=== PATIENT | male | born 1985 | race Caucasian/White ===

== ENCOUNTER 2018-12-10 16:15 | Observation (INO) | payer OTHER ==
[2018-12-10] MEDS: IOHEXOL 300MG/ML 150 ML BTL (16:49)
[2018-12-10] MEDS: SOD CHLORIDE 0.9% 100 ML (16:49)
[2018-12-10] MEDS: HYDROmorphONE 1 MG/ML SYG IV ×2 (17:05→23:07)
[2018-12-10 17:33] LABS: ADD MAN DIFF? NO
[2018-12-10 17:34] LABS: BASOPHILS % 0.4 % (0.0-2.0); HEMATOCRIT 40.4 % (42.0-52.0); HEMOGLOBIN 13.9 g/dl (14.0-18.0); LYMPHOCYTES # 1.1 10^3/ul (0.8-2.9); LYMPHOCYTES % 12.7 % (15.0-51.0); MEAN CORPUSCULAR HEMOGLOBIN 28.8 pg (29.0-33.0); MEAN CORPUSCULAR HGB CONC 34.4 g/dl (32.0-37.0); MEAN CORPUSCULAR VOLUME 83.8 fl (82.0-101.0); MEAN PLATELET VOLUME 9.2 fl (7.4-10.4); MONOCYTE # 0.4 10^3/ul (0.3-0.9); NEUTROPHIL # 7.3 10^3/ul (1.6-7.5); PLATELET COUNT 329 10^3/UL (140-415); RED BLOOD COUNT 4.82 10^6/ul (4.70-6.10); RED CELL DISTRIBUTION WIDTH 11.9 % (11.5-14.5)
[2018-12-10 17:50] LABS: ALANINE AMINOTRANSFERASE 41 IU/L (13-69); ALBUMIN 4.8 g/dl (3.3-4.9); ALKALINE PHOSPHATASE 52 IU/L (42-121); ANION GAP 13 (5-13); ASPARTATE AMINO TRANSFERASE 28 IU/L (15-46); BILIRUBIN,INDIRECT 2.2 mg/dl (0-1.1); BILIRUBIN,TOTAL 2.2 mg/dl (0.2-1.3); BLOOD UREA NITROGEN 15 mg/dl (7-20); CALCIUM 10.2 mg/dl (8.4-10.2); CARBON DIOXIDE 24 mmol/L (21-31); CHLORIDE 102 mmol/L (97-110); CREATININE 1.06 mg/dl (0.61-1.24); Estimated GFR > 60 mL/min (>60); GLUCOSE 125 mg/dl (70-220); LIPASE 73 U/L (23-300); POTASSIUM 3.8 mmol/L (3.5-5.1); SODIUM 139 mmol/L (135-144)
[2018-12-10] MEDS: FENTAnyl 50 MCG/ML VIAL IV ×2 (18:18→18:50)
[2018-12-10] MEDS: HYDROmorphONE 2 MG/ML SYG IV (18:51)
[2018-12-10] MEDS: KETAMINE HCL (50 MG/ML) 1ml syringe IV (19:50)
[2018-12-10] MEDS: ONDANSETRON 4 MG INJ IV (19:50)
[2018-12-10 19:54] LABS: ADD UMIC NO; UR ASCORBIC ACID 40 mg/dL (NEGATIVE); UR BILIRUBIN (Dip) NEGATIVE (NEGATIVE); UR BLOOD (Dip) NEGATIVE (NEGATIVE); UR CLARITY CLEAR (CLEAR); UR COLOR YELLOW (YELLOW); UR GLUCOSE (Dip) NEGATIVE (NEGATIVE); UR KETONES (Dip) NEGATIVE (NEGATIVE); UR LEUKOCYTE ESTERASE (Dip) NEGATIVE Leu/ul (NEGATIVE); UR NITRITE (Dip) NEGATIVE (NEGATIVE); UR SPECIFIC GRAVITY (Dip) 1.053 (1.003-1.030); UR TOTAL PROTEIN (Dip) NEGATIVE (NEGATIVE); UR UROBILINOGEN (Dip) NEGATIVE (NEGATIVE)
[2018-12-10] MEDS ORDERED: ONDANSETRON 4 MG INJ IV ×2 (20:00→22:30)
[2018-12-10] MEDS ORDERED: ACETAMINOPHEN 325 MG TAB PO ×2 (20:00→22:30)
[2018-12-10] MEDS: morphine 4 MG/ML VIAL IV (22:19)
[2018-12-10] MEDS: SOD CHLORIDE 0.9% 1,000 ML IV (22:31)
[2018-12-10] MEDS: ZOLPIDEM 5 MG TAB PO (23:07)
[2018-12-10] MEDS: RANITIDINE 150 MG TAB PO (23:07)
[2018-12-11] MEDS: KETOROLAC 30 MG INJ IV (00:29)
[2018-12-11] MEDS: ZOLPIDEM 5 MG TAB PO (00:29)
[2018-12-11] MEDS: HYDROmorphONE 1 MG/ML SYG IV ×6 (03:10→14:50)
[2018-12-11 05:04] LABS: ADD MAN DIFF? NO
[2018-12-11 05:15] LABS: BASOPHIL # 0.1 10^3/ul (0.0-0.1); BASOPHILS % 0.7 % (0.0-2.0); EOSINOPHILS # 0.1 10^3/ul (0.0-0.5); EOSINOPHILS % 1.3 % (0.0-7.0); HEMATOCRIT 39.8 % (42.0-52.0); HEMOGLOBIN 13.5 g/dl (14.0-18.0); LYMPHOCYTES # 2.9 10^3/ul (0.8-2.9); LYMPHOCYTES % 27.1 % (15.0-51.0); MEAN CORPUSCULAR HEMOGLOBIN 29.3 pg (29.0-33.0); MEAN CORPUSCULAR HGB CONC 33.9 g/dl (32.0-37.0); MEAN CORPUSCULAR VOLUME 86.5 fl (82.0-101.0); MEAN PLATELET VOLUME 9.1 fl (7.4-10.4); MONOCYTE # 1.1 10^3/ul (0.3-0.9); MONOCYTES % 10.1 % (0.0-11.0); NEUTROPHIL # 6.4 10^3/ul (1.6-7.5); NEUTROPHILS % 59.5 % (39.0-77.0); PLATELET COUNT 280 10^3/UL (140-415)
[2018-12-11 05:15] LABS: WHITE BLOOD COUNT 10.8 10^3/ul (4.8-10.8)
[2018-12-11 05:27] LABS: ALANINE AMINOTRANSFERASE 38 IU/L (13-69); ALBUMIN 3.9 g/dl (3.3-4.9); ALKALINE PHOSPHATASE 52 IU/L (42-121); ANION GAP 6 (5-13); ASPARTATE AMINO TRANSFERASE 25 IU/L (15-46); BILIRUBIN,INDIRECT 2.5 mg/dl (0-1.1); BILIRUBIN,TOTAL 2.5 mg/dl (0.2-1.3); BLOOD UREA NITROGEN 23 mg/dl (7-20); CALCIUM 9.4 mg/dl (8.4-10.2); CARBON DIOXIDE 32 mmol/L (21-31); CHLORIDE 102 mmol/L (97-110); CHOLESTEROL 142 mg/dl (100-200); CREATININE 1.05 mg/dl (0.61-1.24); Estimated GFR > 60 mL/min (>60); GLUCOSE 86 mg/dl (70-220); SODIUM 140 mmol/L (135-144); TOTAL PROTEIN 6.9 g/dl (6.1-8.1)
[2018-12-11 05:28] LABS: CHOL/HDL RATIO 3.3 RATIO; HDL CHOLESTEROL 43 mg/dl (28-63); LDL CHOLESTEROL,CALCULATED 37 mg/dl; TRIGLYCERIDES 310 mg/dl (0-149)
[2018-12-11] MEDS: PANTOPRAZOLE (EC) 40 MG TAB PO (05:36)
[2018-12-11] MEDS: SOD CHLORIDE 0.9% 1,000 ML IV ×2 (05:36→14:30)
[2018-12-11] MEDS: IBUPROFEN 800 MG TAB PO (15:21)
[2018-12-11] MEDS: CYCLOBENZAPRINE 10 MG TAB PO (15:21)
== END 2018-12-11 16:48 | disposition home or self-care (01) ==
LOC: E/R 16:15 → 2NE 20:00
DX: M54.5 Low back pain (principal)
CPT/HCPCS: 36415; 74177; 80048; 80053; 80061; 80076; 81003; 83690; 85025; 96374; 96376; 99285-25